=== PATIENT | female | born 1930 | race Caucasian/White ===

== ENCOUNTER 2017-04-30 19:40 | Emergency (ER) | payer MEDICARE, BC ==
[2017-04-30] MEDS ORDERED: Acetaminophen 325 MG Tab PO ONE (20:19)
[2017-04-30] MEDS ORDERED: Diphtheria,Pertussis(Acell),Tetanus Vaccine 0.5 ML SDV IM ONE (20:19)
--- NOTE | 2017-04-30 20:25 | EDM.PDOC ---
ED HPI GENERAL MEDICAL PROBLEM - General Chief Complaint: Head Injury Stated Complaint: FALL-INJURED FACE Time Seen by Provider: 04/30/17 20:10 Source of Information: Reports: Patient History Limitations: Reports: No Limitations - History of Present Illness INITIAL COMMENTS - FREE TEXT/NARRATIVE: 87 yo female who lives independently tripped going up some stairs at home and hit her forehead. No extremity injuries. No LOC. No nausea. No neck pain. Tetanus is not UTD. Has local tenderness of forehead, no CONDE. 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 Denies: Confusion, Dizziness, Headache, Numbness, Paresthesia, Syncope, Trouble Speaking, Difficulty Walking, Change in Speech, Gait Disturbance Psychiatric: Reports: No Symptoms ED EXAM, HEAD INJURY - Physical Exam Exam: See Below Exam Limited By: No Limitations General Appearance: Alert, WD/WN, No Apparent Distress Head: Facial Swelling (R forehead only.), Facial Tenderness Eyes: Bilateral Eye: EOMI, Normal Inspection, PERRL Ears: Normal External Exam, Normal Canal, Hearing Grossly Normal, Normal TMs Nose: Normal Inspection, Normal Mucousa, No Blood Throat/Mouth: Normal Inspection, Normal Lips, Normal Teeth, Normal Oropharynx, Normal Voice, No Airway Compromise Neck: Non-Tender, Full Range of Motion Respiratory: No Respiratory Distress, Lungs Clear, Normal Breath Sounds, No Accessory Muscle Use Cardiovascular: Regular Rate, Rhythm, No Edema Neurologic: shift foreman II-XII nml As Tested, No Motor/Sensory Deficits, Alert, Normal Mood/Affect, Oriented x 3 Skin: Rash (Abrasion to the R forehead ) - Jarales Coma Score Best Eye Response (Jarales): (4) Open Spontaneously Best Verbal Response (Jarales): (5) Oriented Best Motor Response (Ayden): (6) Obeys Commands Jarales Total: 15 Course - Orders/Labs/Meds Orders: Active Orders 24 hr Category Date Time Status Vaccines to be Administered [RC] PER UNIT ROUTINE Care 04/30/17 20:19 Ordered Acetaminophen [Tylenol] Med 04/30/17 20:19 Once 650 mg PO NOW ONE Diphth,Pertuss(Acell),Tet Vac [Adacel] Med 04/30/17 20:19 Once 0.5 ml IM .ONCE ONE Departure - Departure Time of Disposition: 20:35 Disposition: Home, Self-Care 01 Condition: Good Clinical Impression: Traumatic hematoma of forehead Qualifiers: Encounter type: initial encounter Qualified Code(s): S00.83XA - Contusion of other part of head, initial encounter Forehead abrasion Qualifiers: Encounter type: initial encounter Qualified Code(s): S00.81XA - Abrasion of other part of head, initial encounter - Discharge Information Referrals: Chris Gonzales MD [Primary Care Provider] - Forms: ED Department Discharge - My Orders Last 24 Hours: My Active Orders 04/30/17 20:19 Vaccines to be Administered [RC] PER UNIT ROUTINE Acetaminophen [Tylenol] 650 mg PO NOW ONE Diphth,Pertuss(Acell),Tet Vac [Adacel] 0.5 ml IM .ONCE ONE - Assessment/Plan Last 24 Hours: My Active Orders 04/30/17 20:19 Vaccines to be Administered [RC] PER UNIT ROUTINE Acetaminophen [Tylenol] 650 mg PO NOW ONE Diphth,Pertuss(Acell),Tet Vac [Adacel] 0.5 ml IM .ONCE ONE
[2017-04-30 22:28] VITALS: BP 141/65
== END 2017-04-30 21:15 | disposition home or self-care (01) ==
LOC: FB.ED 19:40
DX: S00.83XA Contusion of other part of head, initial encounter (principal); R40.2412 Glasgow coma scale score 13-15, at arrival to emergency department; Z23 Encounter for immunization; W01.10XA Fall on same level from slipping, tripping and stumbling with subsequent striking against unspecified object, initial encounter
CPT/HCPCS: 90471; 90715; 99282; A9270; 99284